=== PATIENT | male | born 1970 | race Caucasian/White ===

== ENCOUNTER 2019-04-22 19:05 | Inpatient (IN) | payer OTHER ==
[~2019-04-22] VITALS: Ht 175.3 cm; Wt 64.4 kg
[2019-04-22] MEDS ORDERED: SODIUM CHLORIDE FLUSH 10ML SYR IVF ONE (20:00)
[2019-04-22] MEDS ORDERED: SODIUM CHLORIDE 0.9% 1,000ML IVBOLUS ONE ×2 (20:00→23:30)
[2019-04-22] MEDS ORDERED: ONDANSETRON 2MG/ML, 2ML IVPush ONE (20:00)
[2019-04-22] MEDS ORDERED: ONDANSETRON 2MG/ML, 2ML ONE (20:05)
[2019-04-22] MEDS ORDERED: MORPHINE SULFATE 4 MG/ML, 1ML ONE ×2 (20:05→21:03)
[2019-04-22] MEDS: MORPHINE SULFATE 4 MG/ML, 1ML IVPush PRN ×2 (20:12→21:07)
[2019-04-22 20:32] LABS: BASOPHILS % (AUTO) 0 % (0-1); EOSINOPHILS # (AUTO) 0.04 x10^3/uL (0-0.4); EOSINOPHILS % (AUTO) 0 % (1-7); LYMPHOCYTES # (AUTO) 0.97 x10^3/uL (1-3.4); LYMPHOCYTES % (AUTO) 11 % (22-44); MD NO; MEAN CORPUSCULAR HEMOGLOBIN 33.1 pg (27.5-34.5); MEAN CORPUSCULAR HGB CONC 34.3 g/dL (33.2-36.2); MEAN CORPUSCULAR VOLUME 96.5 fL (81-97); MEAN PLATELET VOLUME 9.5 fL (7.4-10.4); MONOCYTES # (AUTO) 0.14 x10^3/uL (0.2-0.8); MONOCYTES % (AUTO) 2 % (2-9); NEUTROPHILS # (AUTO) 7.58 x10^3/uL (1.8-6.8); NEUTROPHILS % (AUTO) 87 % (42-75); PLATELET COUNT 213 x10^3/uL (130-400); RED BLOOD COUNT 4.88 x10^6/uL (4.38-5.82)
[2019-04-22 20:47] LABS: ALANINE AMINOTRANSFERASE 22 U/L (12-78); ALBUMIN 3.4 g/dL (3.4-5.0); ANION GAP 6 mmol/L (5-15); CALCIUM 9.1 mg/dL (8.5-10.1); CHLORIDE 105 mmol/L (98-107)
[2019-04-22 20:50] LABS: ALKALINE PHOSPHATASE 88 U/L (45-117); BILIRUBIN,TOTAL 0.8 mg/dL (0.2-1.0); TOTAL PROTEIN 7.3 g/dL (6.4-8.2)
[2019-04-22] MEDS ORDERED: OMNIPAQUE 350 MG/ML, 100ML BOTTLE ONE (22:34)
[2019-04-22] MEDS ORDERED: METRONIDAZOLE PMX 500MG/100ML 100 ML IVPB ONE (23:00)
[2019-04-22] MEDS ORDERED: CIPROFLOXACIN/PMX 400MG/200ML 100 ML IVPB ONE (23:00)
[2019-04-22] MEDS ORDERED: METRONIDAZOLE PMX 500MG/100ML 100 ML ONE (23:02)
[2019-04-22] MEDS ORDERED: SODIUM CHLORIDE 0.9% 1,000 ML IV ONE (23:21)
[2019-04-22] MEDS ORDERED: MORPHINE SULFATE 4 MG/ML, 1ML IVPush PRN (23:30)
[2019-04-22] MEDS ORDERED: ONDANSETRON 2MG/ML, 2ML IVPush PRN (23:30)
[2019-04-22] MEDS ORDERED: SODIUM CHLORIDE FLUSH 10ML SYR IVF PRN (23:30)
[2019-04-22] MEDS ORDERED: CIPROFLOXACIN/PMX 400MG/200ML 200 ML ONE (23:41)
[2019-04-23] MEDS ORDERED: ONDANSETRON 2MG/ML, 2ML IVPush PRN (00:30)
[2019-04-23] MEDS ORDERED: ACETAMINOPHEN 325 MG TABLET PO PRN (00:30)
[2019-04-23] MEDS ORDERED: DOCUSATE 100 MG CAPSULE PO PRN (00:30)
[2019-04-23] MEDS ORDERED: TEMAZEPAM 15 MG CAPSULE PO PRN (00:30)
[2019-04-23 00:38] VITALS: BP 137/86
[2019-04-23] MEDS: SODIUM CHLORIDE 0.9% 1,000 ML IV SCH ×2 (01:18→17:32)
[2019-04-23] MEDS: METRONIDAZOLE PMX 500MG/100ML 100 ML IV SCH ×3 (06:21→19:46)
[2019-04-23 07:18] VITALS: BP 130/86
[2019-04-23] MEDS ORDERED: MORPHINE SULFATE 4 MG/ML, 1ML IVPush PRN (11:35)
[2019-04-23 12:06] LABS: MEAN CORPUSCULAR HEMOGLOBIN 32.7 pg (27.5-34.5); MEAN CORPUSCULAR HGB CONC 33.5 g/dL (33.2-36.2); MEAN CORPUSCULAR VOLUME 97.6 fL (81-97); MEAN PLATELET VOLUME 9.4 fL (7.4-10.4); PLATELET COUNT 245 x10^3/uL (130-400); RED BLOOD COUNT 5.09 x10^6/uL (4.38-5.82); RED CELL DISTRIBUTION WIDTH 13.7 % (9.4-14.8)
[2019-04-23 12:13] LABS: ANION GAP 9 mmol/L (5-15); CALCIUM 8.3 mg/dL (8.5-10.1); CHLORIDE 106 mmol/L (98-107); CREATININE 0.79 mg/dL (0.7-1.3)
[2019-04-23 12:24] LABS: MD YES
[2019-04-23] MEDS: CIPROFLOXACIN/PMX 400MG/200ML 200 ML IV SCH ×2 (12:31→23:41)
[2019-04-23] MEDS ORDERED: HYDROmorphone 1 MG/ML, 1ML INJ IM PRN (13:00)
[2019-04-23 13:02] LABS: LYMPH#(MANUAL) 0.94 x10^3/uL (1-3.4); LYMPHS% (MANUAL) 4 % (22-44)
[2019-04-23 13:03] LABS: <PLATELET ESTIMATE> ADEQUATE; <PLT MORPHOLOGY> NORMAL PLT MORPH; <RBC MORPHOLOGY> NORMAL; BAND#(MANUAL) 6.79 x10^3/uL; BANDS%(MANUAL) 29 % (0-7); MONOS#(MANUAL) 0.94 x10^3/uL (0.3-2.7); MONOS% (MANUAL) 4 % (2-9); SEG#(MANUAL) 14.74 x10^3/uL (1.8-6.8); SEGS% (MANUAL) 63 % (42-75)
[2019-04-23 13:17] VITALS: BP 122/79
[2019-04-23] MEDS ORDERED: LIDOCAINE JELLY 2%, 30GM TP ONE (15:00)
[2019-04-23 19:49] VITALS: BP 144/89
[2019-04-24 00:31] VITALS: BP 132/87
[2019-04-24] MEDS: METRONIDAZOLE PMX 500MG/100ML 100 ML IV SCH ×4 (01:44→20:38)
[2019-04-24 06:16] LABS: MEAN CORPUSCULAR HEMOGLOBIN 32.6 pg (27.5-34.5); MEAN CORPUSCULAR HGB CONC 33.2 g/dL (33.2-36.2); MEAN CORPUSCULAR VOLUME 98.2 fL (81-97); PLATELET COUNT 220 x10^3/uL (130-400); RED BLOOD COUNT 4.82 x10^6/uL (4.38-5.82); RED CELL DISTRIBUTION WIDTH 14.4 % (9.4-14.8)
[2019-04-24 06:22] LABS: CALCIUM 8.6 mg/dL (8.5-10.1)
[2019-04-24 06:23] LABS: ANION GAP 8 mmol/L (5-15); CHLORIDE 105 mmol/L (98-107); CREATININE 0.69 mg/dL (0.7-1.3)
[2019-04-24 06:42] LABS: MD YES
[2019-04-24 06:44] LABS: <PLATELET ESTIMATE> ADEQUATE; <PLT MORPHOLOGY> NORMAL PLT MORPH; <RBC MORPHOLOGY> NORMAL; BAND#(MANUAL) 3.89 x10^3/uL; BANDS%(MANUAL) 16 % (0-7); EOS#(MANUAL) 0.24 x10^3/uL (0.0-0.4); EOS% (MANUAL) 1 % (1-7); LYMPH#(MANUAL) 0.49 x10^3/uL (1-3.4); LYMPHS% (MANUAL) 2 % (22-44); MONOS#(MANUAL) 0.49 x10^3/uL (0.3-2.7); MONOS% (MANUAL) 2 % (2-9); SEGS% (MANUAL) 79 % (42-75)
[2019-04-24 07:16] VITALS: BP 145/84
[2019-04-24] MEDS: D5%-0.45NACL+KCL 40MEQ 1,000 ML IV SCH ×2 (11:03→20:38)
[2019-04-24] MEDS: PIPERACILLIN/TAZO/PMX 3.375GM 50 ML IV SCH ×3 (11:03→23:23)
[2019-04-24 14:19] VITALS: BP 127/82
[2019-04-24 19:29] VITALS: BP 130/86
[2019-04-25 00:33] VITALS: BP 122/79
[2019-04-25] MEDS: METRONIDAZOLE PMX 500MG/100ML 100 ML IV SCH ×4 (02:32→20:43)
[2019-04-25] MEDS: PIPERACILLIN/TAZO/PMX 3.375GM 50 ML IV SCH ×3 (05:15→18:15)
[2019-04-25 05:43] LABS: MEAN CORPUSCULAR HEMOGLOBIN 33.2 pg (27.5-34.5); MEAN CORPUSCULAR VOLUME 97.9 fL (81-97); MEAN PLATELET VOLUME 9.3 fL (7.4-10.4); PLATELET COUNT 229 x10^3/uL (130-400); RED BLOOD COUNT 4.48 x10^6/uL (4.38-5.82); RED CELL DISTRIBUTION WIDTH 14.3 % (9.4-14.8)
[2019-04-25 05:48] LABS: ANION GAP 6 mmol/L (5-15); CALCIUM 8.4 mg/dL (8.5-10.1); CHLORIDE 108 mmol/L (98-107)
[2019-04-25 05:49] LABS: CREATININE 0.71 mg/dL (0.7-1.3)
[2019-04-25 06:19] LABS: MD YES
[2019-04-25 06:20] LABS: BAND#(MANUAL) 1.58 x10^3/uL; BANDS%(MANUAL) 7 % (0-7); EOS#(MANUAL) 0.23 x10^3/uL (0.0-0.4); EOS% (MANUAL) 1 % (1-7); LYMPH#(MANUAL) 1.13 x10^3/uL (1-3.4); LYMPHS% (MANUAL) 5 % (22-44); MONOS#(MANUAL) 1.35 x10^3/uL (0.3-2.7); MONOS% (MANUAL) 6 % (2-9); SEG#(MANUAL) 18.23 x10^3/uL (1.8-6.8); SEGS% (MANUAL) 81 % (42-75)
[2019-04-25 06:21] LABS: <PLATELET ESTIMATE> ADEQUATE; <PLT MORPHOLOGY> NORMAL PLT MORPH; <RBC MORPHOLOGY> NORMAL
[2019-04-25 07:21] VITALS: BP 135/84
[2019-04-25] MEDS: D5%-0.45NACL+KCL 40MEQ 1,000 ML IV SCH ×2 (09:25→18:58)
[2019-04-25 13:06] VITALS: BP 122/82
[2019-04-25] MEDS ORDERED: HYDROmorphone 2 MG/ML, 1ML ONE (15:58)
[2019-04-25 19:45] VITALS: BP 137/87
[2019-04-26] MEDS: PIPERACILLIN/TAZO/PMX 3.375GM 50 ML IV SCH ×4 (00:16→17:49)
[2019-04-26 01:04] VITALS: BP 131/88
[2019-04-26] MEDS: METRONIDAZOLE PMX 500MG/100ML 100 ML IV SCH ×4 (02:20→20:04)
[2019-04-26] MEDS: D5%-0.45NACL+KCL 40MEQ 1,000 ML IV SCH ×2 (05:25→13:00)
[2019-04-26 05:59] LABS: MEAN CORPUSCULAR HEMOGLOBIN 32.6 pg (27.5-34.5); MEAN CORPUSCULAR HGB CONC 33.3 g/dL (33.2-36.2); MEAN CORPUSCULAR VOLUME 97.9 fL (81-97); MEAN PLATELET VOLUME 9.3 fL (7.4-10.4); PLATELET COUNT 257 x10^3/uL (130-400); RED BLOOD COUNT 4.94 x10^6/uL (4.38-5.82); RED CELL DISTRIBUTION WIDTH 14.5 % (9.4-14.8)
[2019-04-26 06:01] LABS: ANION GAP 7 mmol/L (5-15); CALCIUM 8.8 mg/dL (8.5-10.1); CHLORIDE 108 mmol/L (98-107); CREATININE 0.68 mg/dL (0.7-1.3)
[2019-04-26 06:32] LABS: MD YES
[2019-04-26 06:34] LABS: BAND#(MANUAL) 1.21 x10^3/uL; BANDS%(MANUAL) 6 % (0-7); EOS% (MANUAL) 1 % (1-7); LYMPH#(MANUAL) 1.41 x10^3/uL (1-3.4); LYMPHS% (MANUAL) 7 % (22-44); MONOS% (MANUAL) 3 % (2-9); SEG#(MANUAL) 16.68 x10^3/uL (1.8-6.8); SEGS% (MANUAL) 83 % (42-75)
[2019-04-26 06:37] LABS: <PLATELET ESTIMATE> ADEQUATE; <PLT MORPHOLOGY> NORMAL PLT MORPH; <RBC MORPHOLOGY> NORMAL
[2019-04-26 06:51] VITALS: BP 133/91
[2019-04-26 13:36] VITALS: BP 131/87
[2019-04-26] MEDS ORDERED: D5%-0.45% NACL 1,000 ML IV SCH (17:30)
[2019-04-26] MEDS: D5%-0.9% NACL 1,000 ML IV SCH (18:29)
[2019-04-26 19:43] VITALS: BP 137/90
[2019-04-26] MEDS: FAMOTIDINE 20 MG/2 ML IVPush SCH (20:04)
[2019-04-27] MEDS: PIPERACILLIN/TAZO/PMX 3.375GM 50 ML IV SCH ×4 (00:06→22:36)
[2019-04-27 00:59] VITALS: BP 136/88
[2019-04-27] MEDS: METRONIDAZOLE PMX 500MG/100ML 100 ML IV SCH ×2 (02:11→08:59)
[2019-04-27 05:28] LABS: MEAN CORPUSCULAR HEMOGLOBIN 32.2 pg (27.5-34.5); MEAN CORPUSCULAR HGB CONC 33.3 g/dL (33.2-36.2); MEAN CORPUSCULAR VOLUME 96.7 fL (81-97); MEAN PLATELET VOLUME 9.1 fL (7.4-10.4); PLATELET COUNT 282 x10^3/uL (130-400); RED CELL DISTRIBUTION WIDTH 14.9 % (9.4-14.8)
[2019-04-27 05:40] LABS: ANION GAP 8 mmol/L (5-15); CALCIUM 8.3 mg/dL (8.5-10.1); CHLORIDE 109 mmol/L (98-107)
[2019-04-27 05:42] LABS: CREATININE 0.74 mg/dL (0.7-1.3)
[2019-04-27 05:57] LABS: BASOPHILS # (AUTO) 0.02 x10^3/uL (0-0.1); BASOPHILS % (AUTO) 0 % (0-1); EOSINOPHILS # (AUTO) 0.26 x10^3/uL (0-0.4); EOSINOPHILS % (AUTO) 1 % (1-7); LYMPHOCYTES # (AUTO) 1.72 x10^3/uL (1-3.4); LYMPHOCYTES % (AUTO) 8 % (22-44); MD SCAN; MONOCYTES # (AUTO) 0.72 x10^3/uL (0.2-0.8); MONOCYTES % (AUTO) 3 % (2-9); NEUTROPHILS % (AUTO) 87 % (42-75)
[2019-04-27] MEDS: FAMOTIDINE 20 MG/2 ML IVPush SCH ×2 (08:59→19:49)
[2019-04-27 09:05] VITALS: BP 132/79
[2019-04-27] MEDS: D5%-0.9% NACL 1,000 ML IV SCH ×2 (09:25→14:53)
[2019-04-27] MEDS ORDERED: MIDAZOLAM 1 MG/ML, 2ML ONE (11:27)
[2019-04-27] MEDS ORDERED: FENTANYL PF 250 MCG/5ML ONE (11:28)
[2019-04-27] MEDS ORDERED: SUCCINYLCHOLINE 20 MG/ML, 10ML ONE ×2 (12:40)
[2019-04-27] MEDS ORDERED: CEFAZOLIN 1,000 MG ONE (12:40)
[2019-04-27] MEDS ORDERED: GLYCOPYRROLATE 0.2MG/1ML, 5ML ONE (12:40)
[2019-04-27] MEDS ORDERED: NEOSTIGMINE 1 MG/ML, 10ML ONE (12:40)
[2019-04-27] MEDS ORDERED: DEXAMETHASONE 4 MG/ML, 1ML ONE (12:40)
[2019-04-27] MEDS ORDERED: PROPOFOL 10 MG/ML, 20ML ONE (12:40)
[2019-04-27] MEDS ORDERED: ROCURONIUM 10MG/ML,5ML ONE (12:40)
[2019-04-27] MEDS ORDERED: SUGAMMADEX 200 MG/2 ML IVPush ONE (12:40)
[2019-04-27] MEDS ORDERED: ONDANSETRON 2MG/ML, 2ML ONE (12:40)
[2019-04-27] MEDS ORDERED: HYDROmorphone 2 MG/ML, 1ML ONE ×2 (13:06→22:12)
[2019-04-27] MEDS: HYDROmorphone 2 MG/ML, 1ML IVPush PRN ×2 (13:10→13:25)
[2019-04-27] MEDS: HYDROmorphone 1 MG/ML, 1ML INJ IV PRN ×3 (13:10→22:14)
[2019-04-27] MEDS ORDERED: FENTANYL PF 100 MCG/2ML IV PRN (13:30)
[2019-04-27] MEDS ORDERED: LABETALOL 5MG/ML, 20ML IV PRN (13:30)
[2019-04-27] MEDS ORDERED: DIAZEPAM 5 MG/ML, 2ML IVPush PRN (13:30)
[2019-04-27] MEDS ORDERED: OXYcodone 5 MG/5 ML ORAL.SOL UDC PO PRN (13:30)
[2019-04-27] MEDS ORDERED: MEPERIDINE/PF 25MG/0.5ML IVPush PRN (13:30)
[2019-04-27] MEDS ORDERED: hydrALAzine 20 MG/ML, 1ML IV PRN (13:30)
[2019-04-27] MEDS ORDERED: PROMETHAZINE 25 MG/ML, 1ML IV PRN (13:30)
[2019-04-27] MEDS ORDERED: ACETAMINOPHEN 325 MG TABLET PO PRN (13:30)
[2019-04-27] MEDS ORDERED: ALBUTEROL SULFATE 2.5 MG/3 ML NPPB PRN (13:30)
[2019-04-27] MEDS ORDERED: POTASSIUM CHLORIDE 20 MEQ in SODIUM CHLORIDE 0.9% 250 ML IV ONE (14:30)
[2019-04-28] MEDS: D5%-0.9% NACL 1,000 ML IV SCH ×3 (00:27→20:16)
[2019-04-28] MEDS: PIPERACILLIN/TAZO/PMX 3.375GM 50 ML IV SCH ×4 (03:42→20:16)
[2019-04-28 04:26] LABS: MEAN CORPUSCULAR HEMOGLOBIN 32.2 pg (27.5-34.5); MEAN CORPUSCULAR HGB CONC 32.7 g/dL (33.2-36.2); MEAN CORPUSCULAR VOLUME 98.5 fL (81-97); PLATELET COUNT 314 x10^3/uL (130-400); RED BLOOD COUNT 4.59 x10^6/uL (4.38-5.82); RED CELL DISTRIBUTION WIDTH 15.2 % (9.4-14.8)
[2019-04-28 04:37] LABS: ALBUMIN 1.6 g/dL (3.4-5.0); ANION GAP 3 mmol/L (5-15); CALCIUM 7.6 mg/dL (8.5-10.1); CHLORIDE 114 mmol/L (98-107)
[2019-04-28 04:41] LABS: ALANINE AMINOTRANSFERASE 10 U/L (12-78); ALKALINE PHOSPHATASE 54 U/L (45-117); BILIRUBIN,TOTAL 0.3 mg/dL (0.2-1.0); CREATININE 0.77 mg/dL (0.7-1.3); TOTAL PROTEIN 4.8 g/dL (6.4-8.2)
[2019-04-28 04:48] LABS: BASOPHILS # (AUTO) 0.08 x10^3/uL (0-0.1); BASOPHILS % (AUTO) 0 % (0-1); EOSINOPHILS # (AUTO) 0.24 x10^3/uL (0-0.4); EOSINOPHILS % (AUTO) 1 % (1-7); LYMPHOCYTES # (AUTO) 2.19 x10^3/uL (1-3.4); LYMPHOCYTES % (AUTO) 11 % (22-44); MD SCAN; MONOCYTES # (AUTO) 1.27 x10^3/uL (0.2-0.8); MONOCYTES % (AUTO) 6 % (2-9); NEUTROPHILS # (AUTO) 16.81 x10^3/uL (1.8-6.8); NEUTROPHILS % (AUTO) 82 % (42-75)
[2019-04-28] MEDS ORDERED: VANCOMYCIN PER PHARMACY MC PRN (08:00)
[2019-04-28] MEDS: FAMOTIDINE 20 MG/2 ML IVPush SCH ×2 (08:10→20:19)
[2019-04-28] MEDS ORDERED: PHARMACOKINETIC CONSULTATION MC ONE (09:00)
[2019-04-28] MEDS ORDERED: PHARMACOKINETIC MONITORING MC PRN (09:00)
[2019-04-28] MEDS ORDERED: VANCOMYCIN 1,600 MG in SODIUM CHLORIDE 0.9% 250 ML IV ONE (09:30)
[2019-04-28] MEDS: VANCOMYCIN 1,300 MG in SODIUM CHLORIDE 0.9% 250 ML IV SCH (21:24)
[2019-04-29 04:25] LABS: CHLORIDE 113 mmol/L (98-107)
[2019-04-29 04:26] LABS: ALANINE AMINOTRANSFERASE 7 U/L (12-78); ALBUMIN 1.5 g/dL (3.4-5.0); ANION GAP 4 mmol/L (5-15); CALCIUM 7.7 mg/dL (8.5-10.1); CREATININE 0.69 mg/dL (0.7-1.3)
[2019-04-29 04:28] LABS: ALKALINE PHOSPHATASE 45 U/L (45-117); BILIRUBIN,TOTAL 0.3 mg/dL (0.2-1.0); TOTAL PROTEIN 4.8 g/dL (6.4-8.2)
[2019-04-29 04:33] LABS: MEAN CORPUSCULAR HEMOGLOBIN 32.3 pg (27.5-34.5); MEAN CORPUSCULAR HGB CONC 33.3 g/dL (33.2-36.2); MEAN PLATELET VOLUME 8.9 fL (7.4-10.4); PLATELET COUNT 332 x10^3/uL (130-400); RED CELL DISTRIBUTION WIDTH 14.9 % (9.4-14.8)
[2019-04-29] MEDS: D5%-0.9% NACL 1,000 ML IV SCH ×2 (04:45→12:00)
[2019-04-29] MEDS: PIPERACILLIN/TAZO/PMX 3.375GM 50 ML IV SCH ×4 (04:45→21:02)
[2019-04-29 04:52] LABS: BASOPHILS # (AUTO) 0.22 x10^3/uL (0-0.1); BASOPHILS % (AUTO) 2 % (0-1); EOSINOPHILS # (AUTO) 0.83 x10^3/uL (0-0.4); EOSINOPHILS % (AUTO) 6 % (1-7); LYMPHOCYTES # (AUTO) 2.13 x10^3/uL (1-3.4); LYMPHOCYTES % (AUTO) 14 % (22-44); MD SCAN; MONOCYTES # (AUTO) 0.93 x10^3/uL (0.2-0.8); MONOCYTES % (AUTO) 6 % (2-9); NEUTROPHILS # (AUTO) 10.74 x10^3/uL (1.8-6.8); NEUTROPHILS % (AUTO) 72 % (42-75)
[2019-04-29] MEDS: VANCOMYCIN 1,300 MG in SODIUM CHLORIDE 0.9% 250 ML IV SCH ×2 (08:57→22:28)
[2019-04-29] MEDS: FAMOTIDINE 20 MG/2 ML IVPush SCH (08:57)
[2019-04-29] MEDS ORDERED: PVN PER PHARMACY MC PRN (09:30)
[2019-04-29] MEDS: HEPARIN 5,000 UNITS/ML, 1ML SQ SCH ×2 (11:25→21:02)
[2019-04-29] MEDS: FILTER, DISP 1.2 MICRON FOR TPN/PVN IV PRN (16:40)
[2019-04-29] MEDS ORDERED: AMINO ACID 10% IV SCH ×2 (17:00)
[2019-04-29] MEDS ORDERED: FAT EMUL IV SCH ×2 (17:00)
[2019-04-29] MEDS ORDERED: DEXTROSE 10% 500 ML IV PRN (17:00)
[2019-04-29] MEDS ORDERED: [UNRECOGNIZED DRUG - OTHER] IV SCH ×2 (17:00)
[2019-04-29] MEDS ORDERED: DEXTROSE 50%, 50ML SYRINGE IVPush PRN (17:00)
[2019-04-29] MEDS ORDERED: DEXTROSE 70% IV SCH ×2 (17:00)
[2019-04-29] MEDS ORDERED: SMOF TPN IV SCH ×2 (17:00)
[2019-04-29] MEDS: INSULIN REGULAR LOW DOSE QDAY SQ-INSULIN SCH (20:05)
[2019-04-29] MEDS: INSULIN REGULAR LOW DOSE Q6H X 48HRS SQ-INSULIN SCH (21:00)
[2019-04-29] MEDS: LORazepam 2 MG/ML, 1ML IVPush PRN (21:06)
[2019-04-30] MEDS: LORazepam 2 MG/ML, 1ML IVPush PRN (02:48)
[2019-04-30] MEDS: INSULIN REGULAR LOW DOSE Q6H X 48HRS SQ-INSULIN SCH ×4 (02:56→21:09)
[2019-04-30] MEDS: PIPERACILLIN/TAZO/PMX 3.375GM 50 ML IV SCH ×4 (02:57→21:41)
[2019-04-30 04:39] LABS: MEAN CORPUSCULAR HEMOGLOBIN 32.3 pg (27.5-34.5); MEAN CORPUSCULAR HGB CONC 33.5 g/dL (33.2-36.2); MEAN CORPUSCULAR VOLUME 96.6 fL (81-97); MEAN PLATELET VOLUME 8.9 fL (7.4-10.4); PLATELET COUNT 356 x10^3/uL (130-400); RED BLOOD COUNT 4.04 x10^6/uL (4.38-5.82); RED CELL DISTRIBUTION WIDTH 14.4 % (9.4-14.8)
[2019-04-30 04:47] LABS: CHLORIDE 111 mmol/L (98-107)
[2019-04-30 04:52] LABS: ANION GAP 7 mmol/L (5-15); CALCIUM 7.8 mg/dL (8.5-10.1); CREATININE 0.56 mg/dL (0.7-1.3)
[2019-04-30 06:01] LABS: MD YES
[2019-04-30 06:03] LABS: BASOS#(MANUAL) 0.14 x10^3/uL (0-0.1); BASOS% (MANUAL) 1 % (0-1); EOS#(MANUAL) 0.42 x10^3/uL (0.0-0.4); EOS% (MANUAL) 3 % (1-7); LYMPH#(MANUAL) 0.99 x10^3/uL (1-3.4); LYMPHS% (MANUAL) 7 % (22-44); MONOS#(MANUAL) 0.28 x10^3/uL (0.3-2.7); MONOS% (MANUAL) 2 % (2-9); SEG#(MANUAL) 12.27 x10^3/uL (1.8-6.8); SEGS% (MANUAL) 87 % (42-75)
[2019-04-30 06:04] LABS: <PLATELET ESTIMATE> ADEQUATE; <PLT MORPHOLOGY> NORMAL PLT MORPH; <RBC MORPHOLOGY> NORMAL
[2019-04-30] MEDS ORDERED: LORazepam 2 MG/ML, 1ML IV PRN ×4 (06:30)
[2019-04-30] MEDS ORDERED: POTASSIUM PHOSPHATE 44 MEQ in SODIUM CHLORIDE 0.9% 500 ML IV ONE (06:30)
[2019-04-30] MEDS: LORazepam 2 MG/ML, 1ML IV PRN (06:54)
[2019-04-30] MEDS ORDERED: LABETALOL 5MG/ML, 20ML ONE (07:52)
[2019-04-30] MEDS ORDERED: METOPROLOL 1 MG/ML, 5ML IVPush ONE (07:55)
[2019-04-30] MEDS ORDERED: METOPROLOL 1 MG/ML, 5ML ONE (07:59)
[2019-04-30] MEDS: THIAMINE 200 MG in SODIUM CHLORIDE 0.9% 50 ML IV SCH (08:06)
[2019-04-30] MEDS ORDERED: MEPERIDINE/PF 25MG/ML,1ML IVPush PRN (11:30)
[2019-04-30] MEDS ORDERED: hydrALAzine 20 MG/ML, 1ML IV PRN (11:30)
[2019-04-30] MEDS ORDERED: LABETALOL 5MG/ML, 20ML IV PRN (11:30)
[2019-04-30] MEDS ORDERED: FENTANYL PF 100 MCG/2ML IV PRN (11:30)
[2019-04-30] MEDS ORDERED: OXYcodone 5 MG/5 ML ORAL.SOL UDC PO PRN (11:30)
[2019-04-30] MEDS ORDERED: MORPHINE SULFATE 4 MG/ML, 1ML IVPush PRN (11:30)
[2019-04-30] MEDS ORDERED: HYDROmorphone 2 MG/ML, 1ML IVPush PRN (11:30)
[2019-04-30] MEDS ORDERED: ONDANSETRON 2MG/ML, 2ML IV PRN (11:30)
[2019-04-30] MEDS: VANCOMYCIN 1,300 MG in SODIUM CHLORIDE 0.9% 250 ML IV SCH (11:34)
[2019-04-30] MEDS ORDERED: FENTANYL PF 250 MCG/5ML ONE (11:42)
[2019-04-30] MEDS ORDERED: MIDAZOLAM 1 MG/ML, 2ML ONE (11:42)
[2019-04-30] MEDS ORDERED: BUPIVACAINE/PF-EPI 0.5% 1:200K ONE (12:02)
[2019-04-30] MEDS ORDERED: PROPOFOL 10 MG/ML, 100ML IV ONE (12:27)
[2019-04-30] MEDS ORDERED: PHENYLEPHRINE 10 MG/ML ONE (12:27)
[2019-04-30] MEDS ORDERED: CEFAZOLIN 1,000 MG ONE (12:27)
[2019-04-30] MEDS ORDERED: SUCCINYLCHOLINE 20 MG/ML, 10ML ONE (12:27)
[2019-04-30] MEDS ORDERED: ROCURONIUM 10MG/ML,5ML ONE (12:27)
[2019-04-30] MEDS ORDERED: NOREPINEPHRINE 8 MG in SODIUM CHLORIDE 0.9% 242 ML IV PRN (12:41)
[2019-04-30] MEDS ORDERED: BISACODYL 10 MG SUPP PR PRN (13:00)
[2019-04-30] MEDS: IPRATROPIUM 0.5 MG/2.5 ML INHA INLINE SCH ×3 (13:00→22:28)
[2019-04-30] MEDS ORDERED: LIDOCAINE-MPF 1%, 2ML ENDO PRN (13:00)
[2019-04-30] MEDS ORDERED: FENTANYL PF 100 MCG/2ML IVPush PRN (13:00)
[2019-04-30] MEDS ORDERED: SENNA 176 MG/5 ML ORAL SOL NG PRN ×2 (13:00)
[2019-04-30] MEDS ORDERED: DOCUSATE 50 MG/5 ML, 10ML UDC NG PRN (13:00)
[2019-04-30] MEDS ORDERED: DEXTROSE 4 GM TAB.CHEW PO PRN (13:00)
[2019-04-30] MEDS ORDERED: LACTULOSE 20 GM/30 ML UDC NG PRN (13:00)
[2019-04-30] MEDS ORDERED: GLUCAGON 1 MG IM PRN (13:00)
[2019-04-30] MEDS ORDERED: DEXTROSE 50%, 50ML SYRINGE IVPush PRN (13:00)
[2019-04-30] MEDS: PROPOFOL 100 ML IV PRN ×2 (14:30→20:23)
[2019-04-30] MEDS ORDERED: [UNRECOGNIZED DRUG - OTHER] IV SCH (17:00)
[2019-04-30] MEDS ORDERED: DEXTROSE 70% IV SCH (17:00)
[2019-04-30] MEDS ORDERED: AMINO ACID 10% IV SCH (17:00)
[2019-04-30] MEDS ORDERED: SMOF TPN IV SCH (17:00)
[2019-04-30] MEDS ORDERED: FAT EMUL IV SCH (17:00)
[2019-04-30] MEDS: SODIUM CHLORIDE FLUSH 10ML SYR IVF SCH (21:00)
[2019-04-30] MEDS ORDERED: VANCOMYCIN 1,400 MG in SODIUM CHLORIDE 0.9% 250 ML IV SCH (21:00)
[2019-04-30] MEDS: INSULIN REGULAR LOW DOSE QDAY SQ-INSULIN SCH (21:00)
[2019-04-30] MEDS: FILTER, DISP 1.2 MICRON FOR TPN/PVN IV PRN (21:09)
[2019-05-01] MEDS: IPRATROPIUM 0.5 MG/2.5 ML INHA INLINE SCH ×6 (03:00→22:08)
[2019-05-01] MEDS: INSULIN REGULAR LOW DOSE Q6H X 48HRS SQ-INSULIN SCH ×3 (03:16→16:10)
[2019-05-01] MEDS: PIPERACILLIN/TAZO/PMX 3.375GM 50 ML IV SCH ×4 (03:17→21:21)
[2019-05-01 04:32] LABS: MEAN CORPUSCULAR HEMOGLOBIN 32.5 pg (27.5-34.5); MEAN CORPUSCULAR HGB CONC 33.8 g/dL (33.2-36.2); MEAN CORPUSCULAR VOLUME 96.1 fL (81-97); MEAN PLATELET VOLUME 9.3 fL (7.4-10.4); PLATELET COUNT 431 x10^3/uL (130-400); RED BLOOD COUNT 4.36 x10^6/uL (4.38-5.82); RED CELL DISTRIBUTION WIDTH 14.6 % (9.4-14.8)
[2019-05-01 04:44] LABS: ANION GAP 7 mmol/L (5-15); CALCIUM 7.3 mg/dL (8.5-10.1); CHLORIDE 106 mmol/L (98-107); CREATININE 0.67 mg/dL (0.7-1.3)
[2019-05-01 05:48] LABS: MD YES
[2019-05-01 05:49] LABS: BAND#(MANUAL) 1.25 x10^3/uL; BANDS%(MANUAL) 5 % (0-7); EOS#(MANUAL) 0.75 x10^3/uL (0.0-0.4); EOS% (MANUAL) 3 % (1-7); LYMPHS% (MANUAL) 8 % (22-44); MONOS% (MANUAL) 4 % (2-9); SEGS% (MANUAL) 80 % (42-75)
[2019-05-01 05:50] LABS: <RBC MORPHOLOGY> NORMAL
[2019-05-01 05:51] LABS: <PLATELET ESTIMATE> INCREASED; <PLT MORPHOLOGY> NORMAL PLT MORPH
[2019-05-01] MEDS: PROPOFOL 100 ML IV PRN (06:31)
[2019-05-01] MEDS: THIAMINE 200 MG in SODIUM CHLORIDE 0.9% 50 ML IV SCH (08:16)
[2019-05-01] MEDS: INSULIN GLARGINE 100 UNITS/ML, PEN SQ-INSULIN SCH ×2 (08:17→21:18)
[2019-05-01] MEDS: SODIUM CHLORIDE FLUSH 10ML SYR IVF SCH ×2 (08:22→21:19)
[2019-05-01] MEDS: LORazepam 2 MG/ML, 1ML IV PRN ×2 (08:59→09:21)
[2019-05-01] MEDS: MIDAZOLAM HCL 50 MG in SODIUM CHLORIDE 0.9% 40 ML IV PRN ×4 (09:25→22:58)
[2019-05-01] MEDS ORDERED: TPN PER PHARMACY MC PRN (09:30)
[2019-05-01] MEDS: HYDROmorphone 2 MG/ML, 1ML IV PRN ×4 (09:51→19:54)
[2019-05-01] MEDS ORDERED: [UNRECOGNIZED DRUG - OTHER] IV SCH ×3 (17:00)
[2019-05-01] MEDS ORDERED: DEXTROSE 70% IV SCH ×3 (17:00)
[2019-05-01] MEDS ORDERED: FAT EMUL IV SCH ×3 (17:00)
[2019-05-01] MEDS ORDERED: SMOF TPN IV SCH ×3 (17:00)
[2019-05-01] MEDS ORDERED: AMINO ACID 10% IV SCH ×3 (17:00)
[2019-05-01] MEDS: FILTER, DISP 1.2 MICRON FOR TPN/PVN IV PRN (17:56)
[2019-05-01] MEDS: INSULIN REGULAR LOW DOSE QDAY SQ-INSULIN SCH (21:19)
[2019-05-02] MEDS: HYDROmorphone 2 MG/ML, 1ML IV PRN ×4 (00:42→14:34)
[2019-05-02] MEDS: IPRATROPIUM 0.5 MG/2.5 ML INHA INLINE SCH ×6 (03:05→22:11)
[2019-05-02] MEDS: PIPERACILLIN/TAZO/PMX 3.375GM 50 ML IV SCH ×4 (04:13→21:19)
[2019-05-02 05:05] LABS: MEAN CORPUSCULAR HEMOGLOBIN 32.4 pg (27.5-34.5); MEAN CORPUSCULAR HGB CONC 33.7 g/dL (33.2-36.2); PLATELET COUNT 375 x10^3/uL (130-400); RED BLOOD COUNT 3.78 x10^6/uL (4.38-5.82); RED CELL DISTRIBUTION WIDTH 14.7 % (9.4-14.8)
[2019-05-02] MEDS: MIDAZOLAM HCL 50 MG in SODIUM CHLORIDE 0.9% 40 ML IV PRN ×4 (05:46→23:48)
[2019-05-02 05:59] LABS: MD YES
[2019-05-02 06:01] LABS: BAND#(MANUAL) 0.19 x10^3/uL; BANDS%(MANUAL) 1 % (0-7); EOS#(MANUAL) 1.11 x10^3/uL (0.0-0.4); EOS% (MANUAL) 6 % (1-7); LYMPH#(MANUAL) 2.96 x10^3/uL (1-3.4); LYMPHS% (MANUAL) 16 % (22-44); MONOS#(MANUAL) 1.11 x10^3/uL (0.3-2.7); MONOS% (MANUAL) 6 % (2-9); SEG#(MANUAL) 13.14 x10^3/uL (1.8-6.8); SEGS% (MANUAL) 71 % (42-75)
[2019-05-02 06:03] LABS: <PLATELET ESTIMATE> INCREASED; <PLT MORPHOLOGY> NORMAL PLT MORPH; <RBC MORPHOLOGY> NORMAL
[2019-05-02 06:40] LABS: ANION GAP 5 mmol/L (5-15); CALCIUM 7.4 mg/dL (8.5-10.1); CHLORIDE 104 mmol/L (98-107); CREATININE 0.65 mg/dL (0.7-1.3)
[2019-05-02] MEDS: INSULIN GLARGINE 100 UNITS/ML, PEN SQ-INSULIN SCH ×2 (08:13→21:15)
[2019-05-02] MEDS: SODIUM CHLORIDE FLUSH 10ML SYR IVF SCH ×2 (08:13→21:14)
[2019-05-02] MEDS: THIAMINE 200 MG in SODIUM CHLORIDE 0.9% 50 ML IV SCH (08:13)
[2019-05-02] MEDS: FENTANYL 75 MCG PATCH TD SCH (13:29)
[2019-05-02] MEDS ORDERED: MIDAZOLAM 1 MG/ML, 5ML ONE (14:53)
[2019-05-02] MEDS ORDERED: FENTANYL PF 250 MCG/5ML ONE (14:53)
[2019-05-02] MEDS ORDERED: ROCURONIUM 10MG/ML,5ML ONE (15:12)
[2019-05-02] MEDS: FILTER, DISP 1.2 MICRON FOR TPN/PVN IV PRN (16:23)
[2019-05-02] MEDS ORDERED: DEXTROSE 70% IV SCH (17:00)
[2019-05-02] MEDS ORDERED: AMINO ACID 10% IV SCH (17:00)
[2019-05-02] MEDS ORDERED: FAT EMUL IV SCH (17:00)
[2019-05-02] MEDS ORDERED: [UNRECOGNIZED DRUG - OTHER] IV SCH (17:00)
[2019-05-02] MEDS ORDERED: SMOF TPN IV SCH (17:00)
[2019-05-02] MEDS: INSULIN REGULAR LOW DOSE QDAY SQ-INSULIN SCH (21:14)
[2019-05-03] MEDS: HYDROmorphone 2 MG/ML, 1ML IV PRN (00:36)
[2019-05-03] MEDS: IPRATROPIUM 0.5 MG/2.5 ML INHA INLINE SCH ×2 (02:10→07:00)
[2019-05-03] MEDS: PIPERACILLIN/TAZO/PMX 3.375GM 50 ML IV SCH ×4 (04:22→22:02)
[2019-05-03 04:47] LABS: MEAN CORPUSCULAR HEMOGLOBIN 32.2 pg (27.5-34.5); MEAN CORPUSCULAR HGB CONC 33.2 g/dL (33.2-36.2); MEAN CORPUSCULAR VOLUME 96.8 fL (81-97); PLATELET COUNT 411 x10^3/uL (130-400); RED BLOOD COUNT 4.32 x10^6/uL (4.38-5.82); RED CELL DISTRIBUTION WIDTH 15.4 % (9.4-14.8)
[2019-05-03 05:00] LABS: ANION GAP 4 mmol/L (5-15); CALCIUM 7.3 mg/dL (8.5-10.1); CHLORIDE 103 mmol/L (98-107)
[2019-05-03 05:02] LABS: CREATININE 0.74 mg/dL (0.7-1.3); TRIGLYCERIDES 226 mg/dL (50-200)
[2019-05-03 06:07] LABS: MD YES
[2019-05-03 06:11] LABS: BAND#(MANUAL) 0.68 x10^3/uL; BANDS%(MANUAL) 3 % (0-7); BASOS#(MANUAL) 0.23 x10^3/uL (0-0.1); BASOS% (MANUAL) 1 % (0-1); EOS#(MANUAL) 2.03 x10^3/uL (0.0-0.4); EOS% (MANUAL) 9 % (1-7); LYMPH#(MANUAL) 2.48 x10^3/uL (1-3.4); LYMPHS% (MANUAL) 11 % (22-44); MONOS#(MANUAL) 2.03 x10^3/uL (0.3-2.7); MONOS% (MANUAL) 9 % (2-9); SEG#(MANUAL) 15.08 x10^3/uL (1.8-6.8); SEGS% (MANUAL) 67 % (42-75)
[2019-05-03 06:12] LABS: <PLATELET ESTIMATE> INCREASED; <PLT MORPHOLOGY> NORMAL PLT MORPH; <RBC MORPHOLOGY> NORMAL
[2019-05-03] MEDS ORDERED: METOCLOPRAMIDE 5 MG/ML, 2ML IVPush PRN (07:30)
[2019-05-03] MEDS: INSULIN GLARGINE 100 UNITS/ML, PEN SQ-INSULIN SCH ×2 (08:18→22:05)
[2019-05-03] MEDS: SODIUM CHLORIDE FLUSH 10ML SYR IVF SCH ×2 (08:19→22:06)
[2019-05-03] MEDS: THIAMINE 200 MG in SODIUM CHLORIDE 0.9% 50 ML IV SCH (08:33)
[2019-05-03] MEDS: INSULIN REGULAR LOW DOSE QDAY SQ-INSULIN SCH ×3 (12:06→22:05)
[2019-05-03] MEDS ORDERED: AMINO ACID 10% IV SCH (17:00)
[2019-05-03] MEDS ORDERED: [UNRECOGNIZED DRUG - OTHER] IV SCH (17:00)
[2019-05-03] MEDS ORDERED: SMOF TPN IV SCH (17:00)
[2019-05-03] MEDS ORDERED: FAT EMUL IV SCH (17:00)
[2019-05-03] MEDS ORDERED: DEXTROSE 70% IV SCH (17:00)
[2019-05-04 03:57] LABS: MEAN CORPUSCULAR HGB CONC 33.4 g/dL (33.2-36.2); MEAN CORPUSCULAR VOLUME 95.9 fL (81-97); MEAN PLATELET VOLUME 9.9 fL (7.4-10.4); PLATELET COUNT 465 x10^3/uL (130-400); RED BLOOD COUNT 3.94 x10^6/uL (4.38-5.82); RED CELL DISTRIBUTION WIDTH 14.7 % (9.4-14.8)
[2019-05-04] MEDS ORDERED: DEXTROSE 10%, 250ML IV SCH (04:00)
[2019-05-04] MEDS: DEXTROSE 10% 1,000 ML IV SCH ×2 (04:23→20:18)
[2019-05-04] MEDS: PIPERACILLIN/TAZO/PMX 3.375GM 50 ML IV SCH ×4 (04:23→21:52)
[2019-05-04 04:34] LABS: ANION GAP 4 mmol/L (5-15); CHLORIDE 103 mmol/L (98-107); CREATININE 0.59 mg/dL (0.7-1.3)
[2019-05-04] MEDS: INSULIN REGULAR LOW DOSE QDAY SQ-INSULIN SCH ×4 (04:37→23:13)
[2019-05-04 05:11] LABS: MD YES
[2019-05-04 05:13] LABS: <PLATELET ESTIMATE> INCREASED; ANISOCYTOSIS 1+; BAND#(MANUAL) 0.41 x10^3/uL; BANDS%(MANUAL) 2 % (0-7); BASOS#(MANUAL) 0.21 x10^3/uL (0-0.1); BASOS% (MANUAL) 1 % (0-1); EOS#(MANUAL) 0.62 x10^3/uL (0.0-0.4); EOS% (MANUAL) 3 % (1-7); LYMPH#(MANUAL) 2.28 x10^3/uL (1-3.4); LYMPHS% (MANUAL) 11 % (22-44); METAMYELOCYTES# (MANUAL) 0.21 x10^3/uL (0-0); METAMYELOCYTES% (MANUAL) 1 % (0-1); MONOS#(MANUAL) 1.24 x10^3/uL (0.3-2.7); MONOS% (MANUAL) 6 % (2-9); POLYCHROMASIA 1+; SEG#(MANUAL) 15.73 x10^3/uL (1.8-6.8); SEGS% (MANUAL) 76 % (42-75)
[2019-05-04 05:14] LABS: LARGE PLATELETS 1+
[2019-05-04] MEDS: THIAMINE 200 MG in SODIUM CHLORIDE 0.9% 50 ML IV SCH (09:47)
[2019-05-04] MEDS: INSULIN GLARGINE 100 UNITS/ML, PEN SQ-INSULIN SCH ×2 (09:50→21:31)
[2019-05-04] MEDS: SODIUM CHLORIDE FLUSH 10ML SYR IVF SCH ×2 (09:51→21:31)
[2019-05-04] MEDS ORDERED: DEXTROSE 70% IV SCH ×2 (17:00)
[2019-05-04] MEDS ORDERED: AMINO ACID 10% IV SCH ×2 (17:00)
[2019-05-04] MEDS ORDERED: SMOF TPN IV SCH ×2 (17:00)
[2019-05-04] MEDS ORDERED: [UNRECOGNIZED DRUG - OTHER] IV SCH ×2 (17:00)
[2019-05-04] MEDS ORDERED: FAT EMUL IV SCH ×2 (17:00)
[2019-05-05] MEDS: PIPERACILLIN/TAZO/PMX 3.375GM 50 ML IV SCH ×3 (03:53→21:15)
[2019-05-05] MEDS: INSULIN REGULAR LOW DOSE QDAY SQ-INSULIN SCH ×4 (04:45→23:00)
[2019-05-05 05:06] LABS: MEAN CORPUSCULAR HEMOGLOBIN 32.1 pg (27.5-34.5); MEAN CORPUSCULAR HGB CONC 33.1 g/dL (33.2-36.2); MEAN PLATELET VOLUME 9.6 fL (7.4-10.4); PLATELET COUNT 494 x10^3/uL (130-400); RED CELL DISTRIBUTION WIDTH 14.7 % (9.4-14.8)
[2019-05-05 05:09] LABS: ANION GAP 2 mmol/L (5-15); CALCIUM 8.1 mg/dL (8.5-10.1); CHLORIDE 103 mmol/L (98-107); CREATININE 0.58 mg/dL (0.7-1.3)
[2019-05-05 05:41] LABS: MD YES
[2019-05-05 05:42] LABS: EOS#(MANUAL) 0.72 x10^3/uL (0.0-0.4); EOS% (MANUAL) 6 % (1-7); LYMPH#(MANUAL) 2.04 x10^3/uL (1-3.4); LYMPHS% (MANUAL) 17 % (22-44); MONOS% (MANUAL) 5 % (2-9); SEG#(MANUAL) 8.64 x10^3/uL (1.8-6.8); SEGS% (MANUAL) 72 % (42-75)
[2019-05-05 05:43] LABS: <PLATELET ESTIMATE> INCREASED; ANISOCYTOSIS 1+; POLYCHROMASIA 1+
[2019-05-05 05:44] LABS: <PLT MORPHOLOGY> NORMAL PLT MORPH
[2019-05-05] MEDS ORDERED: MIDAZOLAM 1 MG/ML, 2ML ONE (08:49)
[2019-05-05] MEDS ORDERED: FENTANYL PF 250 MCG/5ML ONE (08:49)
[2019-05-05] MEDS ORDERED: PROPOFOL 50 ML ONE (08:49)
[2019-05-05] MEDS: INSULIN GLARGINE 100 UNITS/ML, PEN SQ-INSULIN SCH ×2 (09:11→21:19)
[2019-05-05] MEDS: SODIUM CHLORIDE FLUSH 10ML SYR IVF SCH ×2 (09:11→21:15)
[2019-05-05] MEDS ORDERED: SUCCINYLCHOLINE 20 MG/ML, 10ML ONE (10:19)
[2019-05-05] MEDS ORDERED: ROCURONIUM 10MG/ML,5ML ONE (10:20)
[2019-05-05] MEDS ORDERED: EPHEDRINE 50 MG/ML, 1ML IM PRN (10:30)
[2019-05-05] MEDS ORDERED: DIPHENHYDRAMINE 50 MG/ML, 1ML IVPush PRN (10:30)
[2019-05-05] MEDS ORDERED: OXYcodone 5 MG/5 ML ORAL.SOL UDC PO PRN (10:30)
[2019-05-05] MEDS ORDERED: MORPHINE SULFATE 4 MG/ML, 1ML IVPush PRN (10:30)
[2019-05-05] MEDS ORDERED: MEPERIDINE/PF 25MG/ML,1ML IVPush PRN (10:30)
[2019-05-05] MEDS ORDERED: ONDANSETRON 2MG/ML, 2ML IV PRN (10:30)
[2019-05-05] MEDS ORDERED: DIAZEPAM 5 MG/ML, 2ML IVPush PRN (10:30)
[2019-05-05] MEDS ORDERED: ONDANSETRON ODT 8 MG PO PRN (10:30)
[2019-05-05] MEDS ORDERED: EPHEDRINE 50 MG/ML, 1ML IVPush PRN (10:30)
[2019-05-05] MEDS ORDERED: PROMETHAZINE 25 MG/ML, 1ML IV PRN (10:30)
[2019-05-05] MEDS ORDERED: SUGAMMADEX 200 MG/2 ML IVPush ONE (10:36)
[2019-05-05] MEDS ORDERED: ONDANSETRON 2MG/ML, 2ML ONE (10:36)
[2019-05-05] MEDS ORDERED: PROPOFOL 10 MG/ML, 20ML ONE ×2 (10:56)
[2019-05-05] MEDS ORDERED: FENTANYL PF 100 MCG/2ML ONE ×2 (11:20→11:38)
[2019-05-05] MEDS: FENTANYL PF 100 MCG/2ML IV PRN ×2 (11:25→12:00)
[2019-05-05] MEDS ORDERED: MEPERIDINE/PF 25MG/ML,1ML ONE (11:38)
[2019-05-05] MEDS ORDERED: LABETALOL 5MG/ML, 20ML ONE (11:47)
[2019-05-05] MEDS: LABETALOL 5MG/ML, 20ML IV PRN ×4 (11:50→12:15)
[2019-05-05] MEDS ORDERED: hydrALAzine 20 MG/ML, 1ML ONE (12:42)
[2019-05-05 13:59] VITALS: BP 112/74
[2019-05-05] MEDS: FENTANYL 75 MCG PATCH TD SCH (15:21)
[2019-05-05] MEDS ORDERED: DEXTROSE 70% IV SCH (17:00)
[2019-05-05] MEDS ORDERED: SMOF TPN IV SCH (17:00)
[2019-05-05] MEDS ORDERED: [UNRECOGNIZED DRUG - OTHER] IV SCH (17:00)
[2019-05-05] MEDS ORDERED: FAT EMUL IV SCH (17:00)
[2019-05-05] MEDS ORDERED: AMINO ACID 10% IV SCH (17:00)
[2019-05-05] MEDS: FILTER, DISP 1.2 MICRON FOR TPN/PVN IV PRN (17:56)
[2019-05-05 19:23] VITALS: BP 114/72
[2019-05-06 01:07] VITALS: BP 121/76
[2019-05-06] MEDS: INSULIN REGULAR LOW DOSE QDAY SQ-INSULIN SCH ×4 (02:42→21:00)
[2019-05-06] MEDS: PIPERACILLIN/TAZO/PMX 3.375GM 50 ML IV SCH ×4 (02:43→21:33)
[2019-05-06 05:37] LABS: ALBUMIN 1.4 g/dL (3.4-5.0); ANION GAP 3 mmol/L (5-15); CALCIUM 8.1 mg/dL (8.5-10.1); CHLORIDE 105 mmol/L (98-107)
[2019-05-06 05:44] LABS: ALANINE AMINOTRANSFERASE 16 U/L (12-78); ALKALINE PHOSPHATASE 64 U/L (45-117); BILIRUBIN,TOTAL 0.3 mg/dL (0.2-1.0); CREATININE 0.59 mg/dL (0.7-1.3); PREALBUMIN 15.9 mg/dL (20.0-40.0); TOTAL PROTEIN 4.9 g/dL (6.4-8.2); TRIGLYCERIDES 179 mg/dL (50-200)
[2019-05-06 07:37] VITALS: BP 143/88
[2019-05-06] MEDS: SODIUM CHLORIDE FLUSH 10ML SYR IVF SCH ×2 (09:30→21:00)
[2019-05-06] MEDS: INSULIN GLARGINE 100 UNITS/ML, PEN SQ-INSULIN SCH ×2 (09:30→21:33)
[2019-05-06 13:48] VITALS: BP 147/96
[2019-05-06] MEDS ORDERED: AMINO ACID 10% IV SCH (17:00)
[2019-05-06] MEDS ORDERED: DEXTROSE 70% IV SCH (17:00)
[2019-05-06] MEDS ORDERED: [UNRECOGNIZED DRUG - OTHER] IV SCH (17:00)
[2019-05-06] MEDS ORDERED: SMOF TPN IV SCH (17:00)
[2019-05-06] MEDS ORDERED: FAT EMUL IV SCH (17:00)
[2019-05-06] MEDS: FILTER, DISP 1.2 MICRON FOR TPN/PVN IV PRN (17:10)
[2019-05-06 18:50] VITALS: BP 162/91
[2019-05-06] MEDS ORDERED: KETOROLAC 30 MG/1 ML IVPush ONE (22:00)
[2019-05-07 00:52] VITALS: BP 159/91
[2019-05-07] MEDS: INSULIN REGULAR LOW DOSE QDAY SQ-INSULIN SCH ×4 (03:14→21:00)
[2019-05-07] MEDS: PIPERACILLIN/TAZO/PMX 3.375GM 50 ML IV SCH ×4 (03:14→21:11)
[2019-05-07 05:05] LABS: BASOPHILS # (AUTO) 0.14 x10^3/uL (0-0.1); BASOPHILS % (AUTO) 1 % (0-1); EOSINOPHILS # (AUTO) 0.45 x10^3/uL (0-0.4); EOSINOPHILS % (AUTO) 4 % (1-7); LYMPHOCYTES # (AUTO) 2.39 x10^3/uL (1-3.4); LYMPHOCYTES % (AUTO) 21 % (22-44); MD NO; MEAN CORPUSCULAR HEMOGLOBIN 32.2 pg (27.5-34.5); MEAN CORPUSCULAR HGB CONC 33.6 g/dL (33.2-36.2); MEAN CORPUSCULAR VOLUME 95.9 fL (81-97); MEAN PLATELET VOLUME 9.2 fL (7.4-10.4); MONOCYTES # (AUTO) 0.85 x10^3/uL (0.2-0.8); MONOCYTES % (AUTO) 7 % (2-9); NEUTROPHILS # (AUTO) 7.68 x10^3/uL (1.8-6.8); NEUTROPHILS % (AUTO) 67 % (42-75); PLATELET COUNT 509 x10^3/uL (130-400); RED BLOOD COUNT 3.53 x10^6/uL (4.38-5.82); RED CELL DISTRIBUTION WIDTH 14.5 % (9.4-14.8)
[2019-05-07 05:13] LABS: ANION GAP 6 mmol/L (5-15); CALCIUM 8.4 mg/dL (8.5-10.1); CHLORIDE 107 mmol/L (98-107)
[2019-05-07 07:15] VITALS: BP 159/91
[2019-05-07] MEDS: SODIUM CHLORIDE FLUSH 10ML SYR IVF SCH ×2 (09:00→21:00)
[2019-05-07] MEDS: INSULIN GLARGINE 100 UNITS/ML, PEN SQ-INSULIN SCH ×2 (09:14→21:11)
[2019-05-07 13:25] VITALS: BP 162/86
[2019-05-07] MEDS ORDERED: AMINO ACID 10% IV SCH (18:00)
[2019-05-07] MEDS ORDERED: FAT EMUL IV SCH (18:00)
[2019-05-07] MEDS ORDERED: DEXTROSE 70% IV SCH (18:00)
[2019-05-07] MEDS ORDERED: SMOF TPN IV SCH (18:00)
[2019-05-07] MEDS ORDERED: [UNRECOGNIZED DRUG - OTHER] IV SCH (18:00)
[2019-05-07 18:25] VITALS: BP 154/92
[2019-05-08] MEDS: INSULIN REGULAR LOW DOSE QDAY SQ-INSULIN SCH ×2 (02:36→08:14)
[2019-05-08] MEDS: PIPERACILLIN/TAZO/PMX 3.375GM 50 ML IV SCH ×4 (02:36→21:03)
[2019-05-08 02:40] VITALS: BP 160/97
[2019-05-08 05:19] LABS: BASOPHILS # (AUTO) 0.07 x10^3/uL (0-0.1); BASOPHILS % (AUTO) 1 % (0-1); EOSINOPHILS # (AUTO) 0.69 x10^3/uL (0-0.4); EOSINOPHILS % (AUTO) 6 % (1-7); LYMPHOCYTES % (AUTO) 17 % (22-44); MD NO; MEAN CORPUSCULAR HEMOGLOBIN 32.3 pg (27.5-34.5); MEAN CORPUSCULAR HGB CONC 33.6 g/dL (33.2-36.2); MEAN CORPUSCULAR VOLUME 96.3 fL (81-97); MEAN PLATELET VOLUME 8.9 fL (7.4-10.4); MONOCYTES # (AUTO) 0.83 x10^3/uL (0.2-0.8); MONOCYTES % (AUTO) 8 % (2-9); NEUTROPHILS % (AUTO) 69 % (42-75); PLATELET COUNT 499 x10^3/uL (130-400); RED BLOOD COUNT 3.59 x10^6/uL (4.38-5.82); RED CELL DISTRIBUTION WIDTH 14.7 % (9.4-14.8)
[2019-05-08 05:25] LABS: ANION GAP 7 mmol/L (5-15); CALCIUM 9.2 mg/dL (8.5-10.1); CHLORIDE 107 mmol/L (98-107); CREATININE 0.69 mg/dL (0.7-1.3)
[2019-05-08 07:02] VITALS: BP 160/100
[2019-05-08] MEDS: SODIUM CHLORIDE FLUSH 10ML SYR IVF SCH ×2 (07:52→21:03)
[2019-05-08] MEDS: INSULIN GLARGINE 100 UNITS/ML, PEN SQ-INSULIN SCH (09:01)
[2019-05-08 13:14] VITALS: BP 134/87
[2019-05-08] MEDS: FENTANYL 75 MCG PATCH TD SCH (14:43)
[2019-05-08 18:47] VITALS: BP 144/91
[2019-05-09 00:48] VITALS: BP 168/98
[2019-05-09] MEDS: PIPERACILLIN/TAZO/PMX 3.375GM 50 ML IV SCH ×2 (03:03→09:05)
[2019-05-09 05:41] LABS: BASOPHILS # (AUTO) 0.19 x10^3/uL (0-0.1); BASOPHILS % (AUTO) 1 % (0-1); EOSINOPHILS # (AUTO) 1.03 x10^3/uL (0-0.4); EOSINOPHILS % (AUTO) 8 % (1-7); LYMPHOCYTES # (AUTO) 3.07 x10^3/uL (1-3.4); LYMPHOCYTES % (AUTO) 23 % (22-44); MD NO; MEAN CORPUSCULAR HEMOGLOBIN 31.9 pg (27.5-34.5); MEAN CORPUSCULAR VOLUME 96.8 fL (81-97); MEAN PLATELET VOLUME 8.9 fL (7.4-10.4); MONOCYTES # (AUTO) 0.86 x10^3/uL (0.2-0.8); MONOCYTES % (AUTO) 7 % (2-9); NEUTROPHILS # (AUTO) 8.23 x10^3/uL (1.8-6.8); NEUTROPHILS % (AUTO) 62 % (42-75); PLATELET COUNT 551 x10^3/uL (130-400); RED BLOOD COUNT 3.92 x10^6/uL (4.38-5.82); RED CELL DISTRIBUTION WIDTH 14.9 % (9.4-14.8)
[2019-05-09 05:49] LABS: ANION GAP 7 mmol/L (5-15); CALCIUM 9.4 mg/dL (8.5-10.1); CHLORIDE 107 mmol/L (98-107)
[2019-05-09 06:39] VITALS: BP 145/91
[2019-05-09] MEDS: SODIUM CHLORIDE FLUSH 10ML SYR IVF SCH (09:00)
[2019-05-09] MEDS ORDERED: ACET325T26 PO (14:00)
[2019-05-09] MEDS ORDERED: ONDA8TAB16 PO (14:00)
[2019-05-09] MEDS ORDERED: DOCU100C33 PO (14:00)
== END 2019-05-09 15:43 | disposition home or self-care (01) | DRG 853 ==
LOC: ED 23:34 → EDIP 04-23 00:28 → 3N 04-23 00:55 → ICU 04-27 14:07 → CSU 04-30 14:21 → CCU 05-04 04:04 → 4NE 05-05 13:35
PROVIDERS: ADMIT Family Medicine; ATTEND Hospitalist
PROC: 0DNW0ZZ Release Peritoneum, Open Approach (ICD-10-PCS; 2019-04-27)
PROC: 0D9670Z Drainage of Stomach with Drainage Device, Via Natural or Artificial Opening (ICD-10-PCS; 2019-04-27)
PROC: 0DBN0ZZ Excision of Sigmoid Colon, Open Approach (ICD-10-PCS; principal; 2019-04-27 11:30)
PROC: 0DBL0ZZ Excision of Transverse Colon, Open Approach (ICD-10-PCS; 2019-04-30)
PROC: 5A1945Z Respiratory Ventilation, 24-96 Consecutive Hours (ICD-10-PCS; 2019-04-30)
PROC: 0BH17EZ Insertion of Endotracheal Airway into Trachea, Via Natural or Artificial Opening (ICD-10-PCS; 2019-04-30)
PROC: 02HV33Z Insertion of Infusion Device into Superior Vena Cava, Percutaneous Approach (ICD-10-PCS; 2019-05-01)
PROC: B548ZZA Ultrasonography of Superior Vena Cava, Guidance (ICD-10-PCS; 2019-05-01)
PROC: 0W9G0ZZ Drainage of Peritoneal Cavity, Open Approach (ICD-10-PCS; 2019-05-02)
PROC: 0W9G0ZZ Drainage of Peritoneal Cavity, Open Approach (ICD-10-PCS; 2019-05-05)
DX: A41.9 Sepsis, unspecified organism (principal); E43 Unspecified severe protein-calorie malnutrition; J96.01 Acute respiratory failure with hypoxia; K65.1 Peritoneal abscess; F10.239 Alcohol dependence with withdrawal, unspecified; K56.7 Ileus, unspecified; K57.20 Diverticulitis of large intestine with perforation and abscess without bleeding; Z99.11 Dependence on respirator [ventilator] status; E87.6 Hypokalemia; F17.210 Nicotine dependence, cigarettes, uncomplicated; I10 Essential (primary) hypertension; K52.9 Noninfective gastroenteritis and colitis, unspecified; Z83.3 Family history of diabetes mellitus; Z68.21 Body mass index [BMI] 21.0-21.9, adult
CPT/HCPCS: 36415; 36600; 74018; 74021; 96361; 96374; 99285; J3475; J3490; J7042; J7644; 36573; 71045; 74177; 80048; 80053; 80202; 82803; 82962; 83690; 83735; 84100; 84134; 84478; 85025; 86140; 87070; 87075; 87081; 87205; 88307; 94002; 94003; 94150; 94640; C1729; G0378; J0610; J0690; J0744; J1100; J1170; J1644; J1815; J1885; J2250; J2270; J2405; J2543; J2704; J2710; J3010; J3370; J3411; J3480; Q9967; C1751; C1760; J0330; J1720; J2060; J2175; J2370; J2765; J3420; J7030; J7040; J7050

== ENCOUNTER → 2019-05-13 | Outpatient (CLI) | payer OTHER ==
[~2019-05-13] MED LIST: ACET325T26 PO; DOCU100C33 PO; ONDA8TAB16 PO
== END | disposition home or self-care (01) ==
LOC: WOUND 12:55
PROVIDERS: ATTEND Internal Medicine
DX: T81.89XD Other complications of procedures, not elsewhere classified, subsequent encounter (principal); F10.20 Alcohol dependence, uncomplicated; I10 Essential (primary) hypertension; E43 Unspecified severe protein-calorie malnutrition; F17.210 Nicotine dependence, cigarettes, uncomplicated; Z68.1 Body mass index [BMI] 19.9 or less, adult; Z93.3 Colostomy status; Y83.8 Other surgical procedures as the cause of abnormal reaction of the patient, or of later complication, without mention of misadventure at the time of the procedure
CPT/HCPCS: 99214